=== PATIENT | male | born 1985 | race Two or more races ===

== ENCOUNTER 2022-06-30 00:06 | Emergency (ER) | payer SELFPAY ==
[~2022-06-30] VITALS: Ht 162.6 cm; Wt 83.6 kg
[2022-06-30 00:24] VITALS: BP 144/87
[2022-06-30] MEDS ORDERED: AMOX500C2 PO (01:05)
[2022-06-30] MEDS: ONDANSETRON HCL 4 MG TABLET PO ONE (01:13)
== END 2022-06-30 01:30 | disposition home or self-care (01) ==
LOC: EMS 00:09
DX: H72.91 Unspecified perforation of tympanic membrane, right ear (principal); H66.91 Otitis media, unspecified, right ear; R68.83 Chills (without fever)
CPT/HCPCS: 99283; Q0162